=== PATIENT | female | born 1985 | race Caucasian/White ===

== ENCOUNTER 2018-07-19 23:41 | Inpatient (IN) | payer MEDICAID ==
[2018-07-19] MEDS ORDERED: LIDOCAINE 1% (MPF) 30 ML INJ (23:52)
[2018-07-19] MEDS ORDERED: LACTATED RINGER'S 1,000 ML IV (23:52)
[2018-07-20] MEDS ORDERED: BUTORPHANOL 2 MG INJ IV
[2018-07-20] MEDS ORDERED: LIDOCAINE 1% (MPF) 30 ML INJ INJ
[2018-07-20] MEDS ORDERED: METHYLERGONOVINE 0.2 MG INJ IM
[2018-07-20] MEDS: LACTATED RINGER'S 1,000 ML IV (00:11)
[2018-07-20 00:12] LABS: ADD MAN DIFF? NO
[2018-07-20] MEDS: OXYTOCIN 30 UNITS/LR 500 ML IV ×2 (00:12→00:14)
[2018-07-20 00:15] LABS: BASOPHILS % 0.3 % (0.0-2.0); EOSINOPHILS # 0.1 10^3/ul (0.0-0.5); EOSINOPHILS % 1.1 % (0.0-7.0); HEMATOCRIT 38.2 % (37.0-47.0); HEMOGLOBIN 12.6 g/dl (12.0-16.0); LYMPHOCYTES # 1.8 10^3/ul (0.8-2.9); LYMPHOCYTES % 28.2 % (15.0-51.0); MEAN CORPUSCULAR HEMOGLOBIN 29.9 pg (29.0-33.0); MEAN CORPUSCULAR VOLUME 90.5 fl (82.0-101.0); MEAN PLATELET VOLUME 11.1 fl (7.4-10.4); MONOCYTE # 0.4 10^3/ul (0.3-0.9); MONOCYTES % 5.9 % (0.0-11.0); NEUTROPHIL # 4.1 10^3/ul (1.6-7.5); NEUTROPHILS % 63.3 % (39.0-77.0); PLATELET COUNT 232 10^3/UL (140-415); RED BLOOD COUNT 4.22 10^6/ul (4.20-5.40); RED CELL DISTRIBUTION WIDTH 15.5 % (11.5-14.5)
[2018-07-20 00:15] LABS: WHITE BLOOD COUNT 6.4 10^3/ul (4.8-10.8)
[2018-07-20] MEDS: IBUPROFEN 600 MG TAB PO ×6 (00:18→23:51)
[2018-07-20] MEDS ORDERED: NA PHOSPHATE/BIPHOS 133 ML ENEMA PR (00:30)
[2018-07-20] MEDS ORDERED: CARBOPROST 250 MCG INJ IM ×2 (00:30)
[2018-07-20] MEDS ORDERED: ONDANSETRON 4 MG TAB PO (00:30)
[2018-07-20] MEDS ORDERED: SENNA/DOCUSATE NA (8.6MG/50MG) TAB PO (00:30)
[2018-07-20] MEDS ORDERED: ONDANSETRON 4 MG INJ IV (00:30)
[2018-07-20] MEDS ORDERED: MISOPROSTOL 200 MCG TAB PR ×2 (00:30)
[2018-07-20] MEDS ORDERED: DIPHENHYDRAMINE 50 MG INJ IV (00:30)
[2018-07-20] MEDS ORDERED: HYDROCODONE/APAP (5/325) TAB PO (00:30)
[2018-07-20] MEDS ORDERED: DIPHENHYDRAMINE 25 MG CAP PO (00:30)
[2018-07-20] MEDS ORDERED: DIBUCAINE 1% 30 GM OINT TOP (00:30)
[2018-07-20] MEDS ORDERED: OXYTOCIN 30 UNITS/LR 500 ML IV ×2 (00:30)
[2018-07-20 00:40] LABS: INR 0.89; PROTIME 12.1 Sec (11.9-14.9); PT RATIO 0.9
[2018-07-20 00:41] LABS: PARTIAL THROMBOPLASTIN TIME 29.5 Sec (23.0-35.0)
[2018-07-20 01:18] LABS: HEPATITIS B SURFACE ANTIGEN NEGATIVE (NEGATIVE)
[2018-07-20] MEDS: LACTATED RINGER'S 1,000 ML IV* (04:16)
[2018-07-20] MEDS: WITCH HAZEL/GLYCERIN PAD PR (05:07)
[2018-07-20] MEDS: BENZOCAINE 20% 56 ML SPRAY TOP (05:07)
[2018-07-20] MEDS: LANOLIN 7 GM TUBE TOP (05:08)
[2018-07-20] MEDS: SENNA/DOCUSATE NA (8.6MG/50MG) TAB PO ×2 (10:31→21:20)
[2018-07-20] MEDS: HYDROCODONE/APAP (5/325) TAB PO ×2 (15:47→21:20)
[2018-07-20] MEDS: MAGNESIUM HYDROXIDE 30ML CUP PO (16:23)
[2018-07-20 16:34] LABS: RAPID PLASMA REAGIN NONREACTIVE (NR)
[2018-07-21] MEDS: IBUPROFEN 600 MG TAB PO ×3 (05:40→17:56)
[2018-07-21 07:48] LABS: ADD MAN DIFF? NO
[2018-07-21 07:54] LABS: BASOPHILS % 0.4 % (0.0-2.0); EOSINOPHILS # 0.1 10^3/ul (0.0-0.5); EOSINOPHILS % 1.8 % (0.0-7.0); HEMATOCRIT 35.7 % (37.0-47.0); HEMOGLOBIN 11.2 g/dl (12.0-16.0); LYMPHOCYTES # 1.5 10^3/ul (0.8-2.9); LYMPHOCYTES % 19.1 % (15.0-51.0); MEAN CORPUSCULAR HEMOGLOBIN 29.1 pg (29.0-33.0); MEAN CORPUSCULAR HGB CONC 31.4 g/dl (32.0-37.0); MEAN CORPUSCULAR VOLUME 92.7 fl (82.0-101.0); MEAN PLATELET VOLUME 10.9 fl (7.4-10.4); MONOCYTE # 0.5 10^3/ul (0.3-0.9); MONOCYTES % 6.6 % (0.0-11.0); NEUTROPHIL # 5.7 10^3/ul (1.6-7.5); PLATELET COUNT 216 10^3/UL (140-415); RED BLOOD COUNT 3.85 10^6/ul (4.20-5.40); RED CELL DISTRIBUTION WIDTH 15.9 % (11.5-14.5)
[2018-07-21] MEDS: SENNA/DOCUSATE NA (8.6MG/50MG) TAB PO (11:41)
[2018-07-22] MEDS ORDERED: VARICELLA VACCINE LIVE/PF 1,350 UNIT/0.5 ML ML SC* (09:00)
[2018-07-22] MEDS ORDERED: MEASLES,MUMPS,RUBELLA VACCINE INJ SC* (09:00)
[2018-07-22] MEDS ORDERED: DIPHTH/TET/ACEL PERTUSS (ADULT) 0.5 ML VIAL IM* (09:00)
== END 2018-07-21 20:30 | disposition home or self-care (01) | DRG 807 ==
LOC: OBT 23:41 → L-D 23:43 → PP1 07-20 01:46 → OBT 23:44 → L-D 23:46
PROVIDERS: Obstetrics & Gynecology
PROC: 10E0XZZ Delivery of Products of Conception, External Approach (ICD-10-PCS; principal; 2018-07-20)
PROC: 10907ZC Drainage of Amniotic Fluid, Therapeutic from Products of Conception, Via Natural or Artificial Opening (ICD-10-PCS; 2018-07-20)
DX: O69.81X0 Labor and delivery complicated by cord around neck, without compression, not applicable or unspecified (principal); Z37.0 Single live birth; Z3A.38 38 weeks gestation of pregnancy
CPT/HCPCS: 85025; 85610; 85730; 86592; 86850; 86900; 86901; 87340; 99464